=== PATIENT | male | born 1945 | race Two or more races ===

== ENCOUNTER 2019-08-11 10:37 | Outpatient (CLI) | payer OTHER | END 2019-08-11 10:47 | disposition home or self-care (01) | LOC: RAD 10:37 → MAMO-SONO 11:15 | PROVIDERS: ATTEND Internal Medicine | DX: E04.1 Nontoxic single thyroid nodule (principal); J44.1 Chronic obstructive pulmonary disease with (acute) exacerbation ==

== ENCOUNTER 2020-05-05 13:36 | Emergency (ER) | payer OTHER ==
[~2020-05-05] VITALS: Ht 167.6 cm; Wt 70.3 kg
== END 2020-05-05 16:26 | disposition home or self-care (01) ==
LOC: ER 13:36
DX: J10.1 Influenza due to other identified influenza virus with other respiratory manifestations (principal); Z03.818 Encounter for observation for suspected exposure to other biological agents ruled out

== ENCOUNTER 2023-08-17 10:57 | Outpatient (CLI) | payer OTHER | END 2023-08-17 10:58 | disposition home or self-care (01) | LOC: NUCLEAR 10:57 | PROVIDERS: ATTEND Internal Medicine | DX: I70.208 Unspecified atherosclerosis of native arteries of extremities, other extremity (principal); I70.90 Unspecified atherosclerosis ==